=== PATIENT | male | born 1975 | race African-American/Black ===

== ENCOUNTER 2018-02-24 17:07 | Inpatient (IN) | payer OTHER ==
[~2018-02-24] VITALS: Ht 182.9 cm; Wt 87.1 kg
[2018-02-25] MEDS ORDERED: SODIUM CHLORIDE 0.9% 1000ML BAG (SEPSIS BOLUS) IV ONE (01:30)
[2018-02-25 02:19] LABS: BASOPHILS % 1.1 % (0.0-2.0); EOSINOPHILS % 0.2 % (0.0-5.0); HEMATOCRIT. 37.6 % (42.0-52.0); LYMPHOCYTES % 22.3 % (20.0-50.0); MEAN CORPUSCULAR HEMOGLOBIN 32.4 pg (28.0-32.0); MEAN CORPUSCULAR VOLUME 93.8 fL (80.0-94.0); MEAN PLATELET VOLUME 8.7 fl (7.4-10.4); MONOCYTES % 13.2 % (2.0-8.0); NEUTROPHILS % 63.2 % (40.0-76.0); PLATELET 92 x1000/uL (130-400); RED BLOOD CELL COUNT 4.01 mill/uL (4.7-6.1); RED CELL DISTRIBUTION WIDTH 15.4 % (11.6-14.6)
[2018-02-25 02:22] LABS: CHLORIDE 94 mEq/L (98-107); INR 1.3; PROTHROMBIN TIME 13.8 sec (9.4-11.6)
[2018-02-25 02:40] LABS: ETHANOL BLOOD 107 mg/dL
[2018-02-25 03:01] LABS: CLARITY URINE CLEAR (CLEAR); COLOR URINE DARK YELLOW (YELLOW); KETONES URINE TRACE (NEGATIVE); LEUKOCYTE ESTERASE URINE NEGATIVE (NEGATIVE); NITRITE URINE NEGATIVE (NEGATIVE); OCCULT BLOOD URINE NEGATIVE (NEGATIVE); PROTEIN URINE 1+ (NEGATIVE); SPECIFIC GRAVITY URINE 1.013 (1.005-1.030)
[2018-02-25 03:11] LABS: *AMPHETAMINES SCREEN URINE NEGATIVE (NEGATIVE); *BARBITURATES SCREEN URINE NEGATIVE (NEGATIVE); *BENZODIAZEPINES SCREEN URINE NEGATIVE (NEGATIVE); *COCAINE SCREEN URINE NEGATIVE (NEGATIVE); CANNABINOID URINE SCREEN NEGATIVE (NEGATIVE); METHADONE URINE SCREEN NEGATIVE (NEGATIVE); OPIATES URINE SCREEN NEGATIVE (NEGATIVE); PHENCYCLIDINE URINE SCREEN NEGATIVE (NEGATIVE)
[2018-02-25] MEDS ORDERED: LORAZEPAM 2MG/ML CPJ IV ONE ×2 (03:15→06:15)
[2018-02-25] MEDS: LORAZEPAM 2MG/ML CPJ IV NR ×2 (03:37→03:38)
[2018-02-25 03:55] LABS: CREATINE KINASE 113 IU/L (39-308)
[2018-02-25] MEDS ORDERED: IOHEXOL-300 100 ML BOTTLE ONE (05:19)
[2018-02-25] MEDS ORDERED: ONDANSETRON HCL 4MG/2ML VIAL IV ONE (06:15)
[2018-02-25] MEDS ORDERED: NA PHOS,M-B/NA PHOS,DI-BA ENEMA 118ML PR PRN (07:30)
[2018-02-25] MEDS ORDERED: TRAMADOL 50MG TABLET PO PRN (07:30)
[2018-02-25] MEDS ORDERED: IPRATROPIUM/ALBUTEROL 0.5-3(2.5)MG/3ML NEB INH PRN (07:30)
[2018-02-25] MEDS ORDERED: ONDANSETRON HCL 4MG/2ML VIAL IV PRN (07:30)
[2018-02-25] MEDS ORDERED: ENOXAPARIN 40MG/0.4ML SYR SUBCUT SCH (07:30)
[2018-02-25] MEDS ORDERED: NITROGLYCERIN 0.4MG TABLET SL SL PRN (07:30)
[2018-02-25] MEDS ORDERED: DIPHENHYDRAMINE 50MG/ML VIAL IV PRN (07:30)
[2018-02-25] MEDS ORDERED: ACETAMINOPHEN 325MG TABLET PO PRN (07:30)
[2018-02-25] MEDS ORDERED: GUAIFENESIN 200MG/10ML SUGAR FREE UDC PO PRN (07:30)
[2018-02-25] MEDS ORDERED: LORAZEPAM 0.5MG TABLET PO PRN (07:30)
[2018-02-25] MEDS ORDERED: CLONIDINE 0.1MG TABLET PO PRN (07:30)
[2018-02-25] MEDS ORDERED: MAGNESIUM/ALUMINUM HYDROXIDE/SIMETHICONE 30ML UDC PO PRN (07:30)
[2018-02-25] MEDS ORDERED: ZOLPIDEM TARTRATE 5MG TABLET PO PRN (07:30)
[2018-02-25] MEDS ORDERED: DOCUSATE SODIUM 100MG CAPSULE PO PRN (07:30)
[2018-02-25 08:43] LABS: FOLIC ACID (FOLATE) SERUM 3.2 ng/mL (>5.38)
[2018-02-25 10:00] VITALS: BP 143/92
[2018-02-25 10:30] VITALS: BP 143/92
[2018-02-25] MEDS ORDERED: KCL 20MEQ/100ML PREMIX 100 ML IV NR (11:00)
[2018-02-25] MEDS: FAMOTIDINE 20MG/2ML VIAL IV SCH ×2 (11:19→22:13)
[2018-02-25] MEDS: SUCRALFATE 1 G/10 ML UDC PO SCH ×4 (11:20→22:13)
[2018-02-25] MEDS: LEVOFLOXACIN 500MG PREMIX 100 ML IV SCH (11:21)
[2018-02-25] MEDS: CEFTRIAXONE 1 G PREMIX 50 ML IV SCH (11:52)
[2018-02-25] MEDS: SODIUM CHLORIDE 0.9% 1,000 ML IV SCH ×2 (11:52→20:47)
[2018-02-25 12:00] VITALS: BP 153/106
[2018-02-25] MEDS ORDERED: POTASSIUM CHLORIDE INJ 20 MEQ in DEXT 5% WATER 250 ML IV ONE (12:00)
[2018-02-25] MEDS ORDERED: MVI, ADULT NO.1 10 ML, FOLIC ACID 1 MG, THIAMINE HCL 100 MG in SODIUM CHLORIDE 0.9% 1,0... IV ONE ×4 (12:00)
[2018-02-25] MEDS: CHLORDIAZEPOXIDE 25MG CAPSULE PO SCH ×2 (14:26→22:13)
[2018-02-25 16:00] VITALS: BP 115/104
[2018-02-25 20:00] VITALS: BP 152/99
[2018-02-26] VITALS: BP 141/99
[2018-02-26 04:00] VITALS: BP 134/98
[2018-02-26] MEDS: CHLORDIAZEPOXIDE 25MG CAPSULE PO SCH ×3 (05:18→21:14)
[2018-02-26] MEDS: SODIUM CHLORIDE 0.9% 1,000 ML IV SCH ×2 (06:50→12:29)
[2018-02-26 08:00] VITALS: BP 150/111
[2018-02-26] MEDS: SUCRALFATE 1 G/10 ML UDC PO SCH ×4 (08:39→21:14)
[2018-02-26] MEDS: FOLIC ACID 1MG TABLET PO SCH (08:39)
[2018-02-26] MEDS: THIAMINE HCL 100MG TABLET PO SCH (08:39)
[2018-02-26] MEDS: FAMOTIDINE 20MG/2ML VIAL IV SCH ×2 (08:39→21:14)
[2018-02-26 12:00] VITALS: BP 142/96
[2018-02-26] MEDS: LEVOFLOXACIN 500MG PREMIX 100 ML IV SCH (12:03)
[2018-02-26] MEDS: CEFTRIAXONE 1 G PREMIX 50 ML IV SCH (12:03)
[2018-02-26 16:00] VITALS: BP 134/94
[2018-02-26 20:00] VITALS: BP 109/78
[2018-02-27] VITALS: BP 128/75
[2018-02-27] MEDS: SODIUM CHLORIDE 0.9% 1,000 ML IV SCH (00:40)
[2018-02-27 04:00] VITALS: BP 132/94
[2018-02-27] MEDS: CHLORDIAZEPOXIDE 25MG CAPSULE PO SCH (06:19)
[2018-02-27 08:00] VITALS: BP 142/98
[2018-02-27] MEDS: FOLIC ACID 1MG TABLET PO SCH (08:19)
[2018-02-27] MEDS: THIAMINE HCL 100MG TABLET PO SCH (08:19)
[2018-02-27] MEDS: FAMOTIDINE 20MG/2ML VIAL IV SCH ×2 (08:19→21:20)
[2018-02-27] MEDS: SUCRALFATE 1 G/10 ML UDC PO SCH ×4 (08:19→21:20)
[2018-02-27 12:00] VITALS: BP 122/84
[2018-02-27] MEDS: CHLORDIAZEPOXIDE 5 MG CAPSULE PO SCH ×2 (13:08→21:20)
[2018-02-27] MEDS: CEFTRIAXONE 1 G PREMIX 50 ML IV SCH (14:55)
[2018-02-27 16:00] VITALS: BP 126/80
[2018-02-27] MEDS: LEVOFLOXACIN 500MG PREMIX 100 ML IV SCH (16:08)
[2018-02-27 20:00] VITALS: BP 125/86
[2018-02-28] VITALS: BP 105/64
[2018-02-28 04:00] VITALS: BP 101/68
[2018-02-28] MEDS: CHLORDIAZEPOXIDE 5 MG CAPSULE PO SCH ×3 (06:28→21:08)
[2018-02-28 08:00] VITALS: BP 120/89
[2018-02-28] MEDS: SUCRALFATE 1 G/10 ML UDC PO SCH ×4 (08:16→21:08)
[2018-02-28] MEDS: FAMOTIDINE 20MG/2ML VIAL IV SCH ×2 (08:17→21:08)
[2018-02-28] MEDS: THIAMINE HCL 100MG TABLET PO SCH (08:17)
[2018-02-28] MEDS: FOLIC ACID 1MG TABLET PO SCH (08:17)
[2018-02-28 12:00] VITALS: BP 113/74
[2018-02-28] MEDS: CEFTRIAXONE 1 G PREMIX 50 ML IV SCH (13:14)
[2018-02-28] MEDS: LEVOFLOXACIN 500MG PREMIX 100 ML IV SCH (13:52)
[2018-02-28 16:00] VITALS: BP 110/81
[2018-02-28 20:00] VITALS: BP 102/72
[2018-03-01] VITALS: BP 111/78
[2018-03-01 04:00] VITALS: BP 106/75
[2018-03-01] MEDS: SUCRALFATE 1 G/10 ML UDC PO SCH (06:51)
[2018-03-01] MEDS: CHLORDIAZEPOXIDE 5 MG CAPSULE PO SCH (06:52)
[2018-03-01 08:00] VITALS: BP 114/84
[2018-03-01] MEDS: THIAMINE HCL 100MG TABLET PO SCH (08:48)
[2018-03-01] MEDS: FAMOTIDINE 20MG/2ML VIAL IV SCH (08:48)
[2018-03-01] MEDS: FOLIC ACID 1MG TABLET PO SCH (08:48)
[2018-03-01 12:00] VITALS: BP 118/83
[2018-03-01 12:18] VITALS: BP 114/84
== END 2018-03-01 12:46 | disposition home or self-care (01) | DRG 872 ==
LOC: ER 18:16 → 7WST 02-25 04:40 → ENRESERV 02-25 08:04
PROVIDERS: ADMIT Internal Medicine; ATTEND Internal Medicine
DX: A41.9 Sepsis, unspecified organism (principal); E87.2 Acidosis; E87.1 Hypo-osmolality and hyponatremia; F10.239 Alcohol dependence with withdrawal, unspecified; K76.0 Fatty (change of) liver, not elsewhere classified; E87.5 Hyperkalemia; E87.6 Hypokalemia; D64.9 Anemia, unspecified; R74.0 Nonspecific elevation of levels of transaminase and lactic acid dehydrogenase [LDH]; I10 Essential (primary) hypertension
CPT/HCPCS: 36415; 71045; 72131; 74177; 80053; 80305; 81003; 82150; 82550; 82607; 82746; 83036; 83605; 83690; 83735; 84443; 85025; 85610; 87040; 87086; 93005; 93970; 96361; 96374; 96375; 96376; 99285; G0482; J0696; J1956; J2060; J2405; J3411; J3480; J3490; J7030; J7060; Q9967